=== PATIENT | female | born 1940 | race African-American/Black ===

== ENCOUNTER 2020-01-16 09:29 | Inpatient (IN) | payer MEDICARE, MEDICAID ==
[~2020-01-16] VITALS: Ht 162.6 cm; Wt 86.2 kg
[2020-01-16] VITALS (10 sets, daily range): BP systolic 108–146; BP diastolic 52–69
[~2020-01-16 09:29] MED LIST: DIPH25CA83 PO; HYDR25TA PO; LOSA100T32 PO
[2020-01-16] MEDS ORDERED: MORPHINE SULFATE 4 MG/ML CPJ (NOT FOR IM USE) IV STA (10:33)
[2020-01-16] MEDS ORDERED: SODIUM CHLORIDE 0.9% 1,000 ML IV ONE (10:33)
[2020-01-16] MEDS ORDERED: ONDANSETRON HCL 4MG/2ML INJ IV STA (10:33)
[2020-01-16 11:14] LABS: HEMATOCRIT. 41.8 % (36.0-48.0); HEMOGLOBIN. 14.1 g/dL (12.0-16.0); MEAN CORPUSCULAR VOLUME 89.2 fL (81.0-99.0); MEAN PLATELET VOLUME 8.5 fl (7.4-10.4); PLATELET 259 x1000/uL (130-400); RED BLOOD CELL COUNT 4.68 mill/uL (4.2-5.4)
[2020-01-16 11:18] LABS: CHLORIDE 103 mEq/L (98-107)
[2020-01-16] MEDS ORDERED: KCL 20MEQ/100ML PREMIX 100 ML IV ONE ×2 (11:45→21:00)
[2020-01-16 11:47] LABS: PLATELET ESTIMATE NORMAL
[2020-01-16] MEDS ORDERED: PIPERACILLIN/TAZ 3.375G PREMIX 50 ML IV ONE (12:00)
[2020-01-16] MEDS ORDERED: CLONIDINE 0.2MG TABLET PO ONE (12:00)
[2020-01-16] MEDS ORDERED: ASPIRIN 81MG TABLET PO ONE (12:00)
[2020-01-16 12:28] LABS: INR 1.2; PARTIAL THROMBOPLASTIN TIME 27.3 sec (23.4-31.0); PROTHROMBIN TIME 12.7 sec (9.6-11.0)
[2020-01-16 12:57] LABS: CLARITY URINE CLOUDY (CLEAR); COLOR URINE DARK YELLOW (YELLOW); KETONES URINE TRACE (NEGATIVE); LEUKOCYTE ESTERASE URINE TRACE (NEGATIVE); NITRITE URINE NEGATIVE (NEGATIVE); OCCULT BLOOD URINE NEGATIVE (NEGATIVE); PROTEIN URINE 1+ (NEGATIVE)
[2020-01-16] MEDS ORDERED: ONDANSETRON HCL 4MG/2ML INJ IV PRN (13:45)
[2020-01-16] MEDS ORDERED: CLOP75TA33 MT (13:59)
[2020-01-16] MEDS ORDERED: LOSA50TA41 MT ×2 (13:59→14:05)
[2020-01-16] MEDS ORDERED: FURO40TA5 MT (13:59)
[2020-01-16] MEDS ORDERED: HYDR-4009 MT (13:59)
[2020-01-16] MEDS ORDERED: HYDR12.54 MT (13:59)
[2020-01-16] MEDS ORDERED: AMIO100T4 PO (13:59)
[2020-01-16] MEDS ORDERED: CLON0.1T MT (13:59)
[2020-01-16] MEDS ORDERED: MIRT15TA6 MT (14:05)
[2020-01-16] MEDS ORDERED: CLON0.1T PO (14:05)
[2020-01-16] MEDS ORDERED: LORA2ORA5 PO (14:05)
[2020-01-16] MEDS ORDERED: SENN-170 MT (14:06)
[2020-01-16] MEDS ORDERED: ONDA4TAB50 MT (14:06)
[2020-01-16] MEDS ORDERED: SODIUM BICARBONATE 150 MEQ in SODIUM CHLORIDE 0.45% 1,000 ML IV SCH (14:30)
[2020-01-16] MEDS ORDERED: CEFTRIAXONE 1,000 MG in DEXTROSE 5% WATER 50 ML IV SCH (15:00)
[2020-01-16] MEDS: METRONIDAZOLE 500 MG PREMIX 100 ML IV SCH ×2 (15:11→23:58)
[2020-01-16] MEDS: ENOXAPARIN 30MG/0.3ML SYR SUBCUT SCH (15:12)
[2020-01-16] MEDS: FAMOTIDINE 20MG/2ML VIAL IV SCH (15:12)
[2020-01-16] MEDS: SODIUM CHLORIDE 0.9% 1,000 ML IV SCH (15:39)
[2020-01-16] MEDS ORDERED: KCL 20MEQ/100ML PREMIX 100 ML IV NR (16:00)
[2020-01-16] MEDS ORDERED: KCL 10MEQ/50ML PREMIX 50 ML IV ONE (20:00)
[2020-01-16] MEDS ORDERED: KCL 10MEQ/50ML PREMIX 50 ML IV SCH (23:45)
[2020-01-17] VITALS (32 sets, daily range): BP systolic 103–171; BP diastolic 50–146
[2020-01-17] MEDS: MORPHINE SULFATE 2 MG/ML CPJ (NOT FOR IM USE) IV PRN (01:14)
[2020-01-17] MEDS ORDERED: AMIODARONE HCL 150 MG in DEXT 5% WATER 100 ML IV SCH (02:00)
[2020-01-17] MEDS: SODIUM CHLORIDE 0.9% 1,000 ML IV SCH (02:55)
[2020-01-17] MEDS: AMIODARONE HCL 900 MG in DEXT 5% WATER 482 ML IV SCH (03:26)
[2020-01-17 04:59] LABS: HEMATOCRIT. 36.3 % (36.0-48.0); HEMOGLOBIN. 11.7 g/dL (12.0-16.0); MEAN CORPUSCULAR VOLUME 90.2 fL (81.0-99.0); MEAN PLATELET VOLUME 8.5 fl (7.4-10.4); PLATELET 206 x1000/uL (130-400); RED BLOOD CELL COUNT 4.03 mill/uL (4.2-5.4); RED CELL DISTRIBUTION WIDTH 14.2 % (11.6-14.6)
[2020-01-17 05:20] LABS: CHLORIDE 114 mEq/L (98-107)
[2020-01-17 05:30] LABS: PHOSPHORUS 2.4 mg/dL (2.5-4.9)
[2020-01-17] MEDS: METRONIDAZOLE 500 MG PREMIX 100 ML IV SCH ×3 (06:49→21:19)
[2020-01-17] MEDS ORDERED: KCL 20MEQ/100ML PREMIX 100 ML IV NR (09:30)
[2020-01-17] MEDS ORDERED: LIDOCAINE HCL 1% 20ML VIAL (Pyxis) INJ ONE (09:48)
[2020-01-17] MEDS ORDERED: POTASSIUM CHLORIDE INJ 40 MEQ in DEXT 5% WATER 250 ML IV ONE (11:00)
[2020-01-17] MEDS: ASPIRIN 81MG TABLET PO SCH (11:13)
[2020-01-17] MEDS: FAMOTIDINE 20MG/2ML VIAL IV SCH (11:13)
[2020-01-17] MEDS: SODIUM BICARBONATE 50 MEQ in SODIUM CHLORIDE 0.45% 1,000 ML IV SCH ×2 (11:13→20:15)
[2020-01-17 11:42] LABS: BG BASE EXCESS -9.3 mmol/L (-2.0-2.0); BG CARBOXYHEMOGLOBIN 0.6 % (0.5-1.5); BG DEOXYHEMOGLOBIN 3.9 % (0.0-5.0); BG FRACTION INSPIRED OXYGEN 28; BG OXYHEMOGLOBIN 93.5 % (94.0-97.0); BG PH 7.304 (7.350-7.450); BG PO2 87.7 mmHg (75.0-100.0); BG SAMPLE SITE LEFT BRACHIAL; BG TOTAL HEMOGLOBIN 12.5 g/dL (12.0-18.0); BG VENT MODE NASAL CANNULA
[2020-01-17 11:45] LABS: PLATELET ESTIMATE NORMAL
[2020-01-17] MEDS: CEFEPIME 1,000 MG in DEXTROSE 5% WATER 50 ML IV SCH (13:45)
[2020-01-17] MEDS: ENOXAPARIN 30MG/0.3ML SYR SUBCUT SCH (14:28)
[2020-01-17 20:20] LABS: CHLORIDE 115 mEq/L (98-107)
[2020-01-17 20:27] LABS: PHOSPHORUS 1.4 mg/dL (2.5-4.9)
[2020-01-18] VITALS (86 sets, daily range): BP systolic 66–184; BP diastolic 28–107
[2020-01-18] MEDS: METRONIDAZOLE 500 MG PREMIX 100 ML IV SCH ×3 (05:07→23:12)
[2020-01-18 05:47] LABS: HEMATOCRIT. 36.4 % (36.0-48.0); MEAN CORPUSCULAR HEMOGLOBIN 29.6 pg (28.0-32.0); MEAN PLATELET VOLUME 8.8 fl (7.4-10.4); PLATELET 212 x1000/uL (130-400); RED BLOOD CELL COUNT 4.04 mill/uL (4.2-5.4); RED CELL DISTRIBUTION WIDTH 14.6 % (11.6-14.6)
[2020-01-18 06:04] LABS: CHLORIDE 113 mEq/L (98-107)
[2020-01-18 06:23] LABS: PHOSPHORUS 1.2 mg/dL (2.5-4.9)
[2020-01-18 07:40] LABS: PLATELET ESTIMATE NORMAL
[2020-01-18 08:07] LABS: *CREATININE RANDOM URINE 318.9 mg/dL (Not Estab.); MICROALBUMIN RANDOM URINE 179.8 ug/mL (Not Estab.)
[2020-01-18] MEDS: ASPIRIN 81MG TABLET PO SCH (08:24)
[2020-01-18] MEDS: FAMOTIDINE 20MG/2ML VIAL IV SCH (08:24)
[2020-01-18] MEDS: AMIODARONE HCL 900 MG in DEXT 5% WATER 482 ML IV SCH (09:11)
[2020-01-18] MEDS ORDERED: POTASSIUM CHLORIDE INJ 40 MEQ in DEXT 5% WATER 250 ML IV SCH (10:00)
[2020-01-18] MEDS ORDERED: AMIODARONE HCL 50MG/ML 3ML VIAL IV ONE (13:00)
[2020-01-18] MEDS ORDERED: LIDOCAINE HCL 2% 5ML SYRINGE IV NR (13:00)
[2020-01-18] MEDS ORDERED: AMIODARONE HCL IV NR (13:00)
[2020-01-18] MEDS ORDERED: DEXT 5% IV NR (13:00)
[2020-01-18] MEDS ORDERED: WATER IV NR (13:00)
[2020-01-18] MEDS ORDERED: MAGNESIUM 2 G PREMIX 50 ML IV ONE (13:15)
[2020-01-18] MEDS: POTASSIUM CHLORIDE INJ 40 MEQ in DEXT 5% WATER 250 ML IV PRN ×2 (13:26→14:28)
[2020-01-18] MEDS: SODIUM BICARBONATE 50 MEQ in SODIUM CHLORIDE 0.45% 1,000 ML IV SCH (13:48)
[2020-01-18] MEDS: CEFEPIME 1,000 MG in DEXTROSE 5% WATER 50 ML IV SCH (14:36)
[2020-01-18] MEDS: ENOXAPARIN 30MG/0.3ML SYR SUBCUT SCH (15:10)
[2020-01-18] MEDS ORDERED: POTASSIUM PHOS,M-BASIC-D-BASIC 15 MMOL in DEXT 5% WATER 245 ML IV NR (16:00)
[2020-01-18 17:44] LABS: CHLORIDE 113 mEq/L (98-107)
[2020-01-19] VITALS (96 sets, daily range): BP systolic 63–219; BP diastolic 28–130
[2020-01-19] MEDS: SODIUM BICARBONATE 50 MEQ in SODIUM CHLORIDE 0.45% 1,000 ML IV SCH (01:04)
[2020-01-19] MEDS: MORPHINE SULFATE 2 MG/ML CPJ (NOT FOR IM USE) IV PRN (01:51)
[2020-01-19] MEDS ORDERED: POTASSIUM CHLORIDE INJ 40 MEQ in DEXT 5% WATER 250 ML IV SCH (02:00)
[2020-01-19 06:09] LABS: HEMATOCRIT. 35.8 % (36.0-48.0); HEMOGLOBIN. 12.1 g/dL (12.0-16.0); MEAN CORPUSCULAR HEMOGLOBIN 30.1 pg (28.0-32.0); MEAN CORPUSCULAR VOLUME 89.1 fL (81.0-99.0); PLATELET 200 x1000/uL (130-400); RED BLOOD CELL COUNT 4.02 mill/uL (4.2-5.4); RED CELL DISTRIBUTION WIDTH 14.7 % (11.6-14.6)
[2020-01-19] MEDS: METRONIDAZOLE 500 MG PREMIX 100 ML IV SCH ×3 (06:09→21:24)
[2020-01-19 06:56] LABS: PLATELET ESTIMATE NORMAL
[2020-01-19 08:59] LABS: PHOSPHORUS 0.8 mg/dL (2.5-4.9)
[2020-01-19] MEDS: FAMOTIDINE 20MG/2ML VIAL IV SCH (10:06)
[2020-01-19] MEDS: ASPIRIN 81MG TABLET PO SCH (10:06)
[2020-01-19] MEDS: AMIODARONE HCL 900 MG in DEXT 5% WATER 482 ML IV SCH (11:24)
[2020-01-19] MEDS: ENOXAPARIN 30MG/0.3ML SYR SUBCUT SCH (14:00)
[2020-01-19] MEDS ORDERED: POTASSIUM PHOS,M-BASIC-D-BASIC 30 MMOL in DEXT 5% WATER 500 ML IV SCH (14:00)
[2020-01-19] MEDS ORDERED: ACETAMINOPHEN 650MG SUPP PR PRN (15:00)
[2020-01-19] MEDS: CEFEPIME 1,000 MG in DEXTROSE 5% WATER 50 ML IV SCH (15:01)
[2020-01-19 15:37] LABS: BG BASE EXCESS -4.8 mmol/L (-2.0-2.0); BG CARBOXYHEMOGLOBIN 0.1 % (0.5-1.5); BG HCO3 ACT 17.8 mmol/L (22.0-26.0); BG METHEMOGLOBIN 0.2 % (0.0-1.5); BG OXYHEMOGLOBIN 92.7 % (94.0-97.0); BG PCO2 26.3 mmHg (35.0-45.0); BG PH 7.448 (7.350-7.450); BG PO2 61.6 mmHg (75.0-100.0); BG SAMPLE SITE RIGHT RADIAL; BG VENT MODE ROOM AIR
[2020-01-19] MEDS ORDERED: SODIUM BICARBONATE 50 MEQ in DEXT 5%/0.45% NACL 1000ML 1,000 ML IV SCH (18:00)
[2020-01-19] MEDS: CLONIDINE 0.1MG TABLET PO PRN (22:51)
[2020-01-19] MEDS: AMLODIPINE 10MG TABLET PO SCH (22:51)
[2020-01-20] VITALS (68 sets, daily range): BP systolic 102–176; BP diastolic 36–121
[2020-01-20] MEDS: AMLODIPINE 10MG TABLET PO SCH ×2 (01:27→09:45)
[2020-01-20] MEDS: CLONIDINE 0.1MG TABLET PO PRN (05:06)
[2020-01-20] MEDS: METRONIDAZOLE 500 MG PREMIX 100 ML IV SCH ×3 (05:06→21:05)
[2020-01-20 05:42] LABS: CHLORIDE 111 mEq/L (98-107); HEMATOCRIT. 34.5 % (36.0-48.0); HEMOGLOBIN. 11.4 g/dL (12.0-16.0); MEAN CORPUSCULAR HEMOGLOBIN 29.4 pg (28.0-32.0); MEAN CORPUSCULAR VOLUME 88.6 fL (81.0-99.0); MEAN PLATELET VOLUME 8.6 fl (7.4-10.4); PLATELET 193 x1000/uL (130-400); RED CELL DISTRIBUTION WIDTH 14.4 % (11.6-14.6)
[2020-01-20 05:49] LABS: PHOSPHORUS 1.5 mg/dL (2.5-4.9)
[2020-01-20] MEDS ORDERED: POTASSIUM PHOS,M-BASIC-D-BASIC 30 MMOL in DEXT 5% WATER 250 ML IV ONE (09:00)
[2020-01-20] MEDS: FAMOTIDINE 20MG/2ML VIAL IV SCH (09:44)
[2020-01-20] MEDS: DEXT 5%/0.45% NACL 1000ML 1,000 ML IV SCH ×2 (09:44→22:50)
[2020-01-20 10:25] LABS: NUCLEATED RED BLOOD CELLS 1 /100 WBC
[2020-01-20 10:26] LABS: PLATELET ESTIMATE NORMAL
[2020-01-20] MEDS ORDERED: POTASSIUM PHOS,M-BASIC-D-BASIC 15 MMOL in DEXT 5% WATER 245 ML IV NR (13:00)
[2020-01-20] MEDS: CEFEPIME 1,000 MG in DEXTROSE 5% WATER 50 ML IV SCH (13:58)
[2020-01-20] MEDS: ENOXAPARIN 30MG/0.3ML SYR SUBCUT SCH (13:59)
[2020-01-20 16:18] LABS: CHLORIDE 109 mEq/L (98-107)
[2020-01-20 16:23] LABS: PHOSPHORUS 2.9 mg/dL (2.5-4.9)
[2020-01-20] MEDS: METOPROLOL TARTRATE 25MG TABLET PO SCH (21:04)
[2020-01-21] VITALS (7 sets, daily range): BP systolic 121–181; BP diastolic 62–85
[2020-01-21] MEDS: CLONIDINE 0.1MG TABLET PO PRN (00:33)
[2020-01-21] MEDS: METRONIDAZOLE 500 MG PREMIX 100 ML IV SCH ×3 (06:01→21:21)
[2020-01-21 07:27] LABS: CHLORIDE 110 mEq/L (98-107)
[2020-01-21 07:32] LABS: PHOSPHORUS 1.4 mg/dL (2.5-4.9)
[2020-01-21] MEDS: AMLODIPINE 10MG TABLET PO SCH (08:11)
[2020-01-21] MEDS: AMIODARONE HCL 200 MG TABLET PO SCH (08:11)
[2020-01-21] MEDS: METOPROLOL TARTRATE 25MG TABLET PO SCH ×2 (08:12→21:20)
[2020-01-21] MEDS: FAMOTIDINE 20MG/2ML VIAL IV SCH (08:12)
[2020-01-21 09:07] LABS: BG BASE EXCESS -0.5 mmol/L (-2.0-2.0); BG CARBOXYHEMOGLOBIN 0.9 % (0.5-1.5); BG DEOXYHEMOGLOBIN 5.1 % (0.0-5.0); BG FRACTION INSPIRED OXYGEN 21; BG OXYGEN SATURATION 94.9 % (92.0-98.5); BG PCO2 29.2 mmHg (35.0-45.0); BG PH 7.495 (7.350-7.450); BG PO2 70.6 mmHg (75.0-100.0); BG SAMPLE SITE LEFT RADIAL; BG TOTAL HEMOGLOBIN 11.2 g/dL (12.0-18.0); BG VENT MODE ROOM AIR
[2020-01-21] MEDS ORDERED: SODIUM PHOS,M-BASIC-D-BASIC 15 MM in DEXT 5% WATER 250 ML IV SCH (12:00)
[2020-01-21] MEDS: CEFEPIME 1,000 MG in DEXTROSE 5% WATER 50 ML IV SCH (12:41)
[2020-01-21] MEDS: DEXT 5%/0.45% NACL 1000ML 1,000 ML IV SCH (12:43)
[2020-01-21] MEDS ORDERED: POTASSIUM PHOS,M-BASIC-D-BASIC 30 MMOL in DEXT 5% WATER 500 ML IV NR (13:00)
[2020-01-21] MEDS ORDERED: METOCLOPRAMIDE HCL 10MG/2ML VIAL IV PRN (13:30)
[2020-01-21] MEDS: ENOXAPARIN 40MG/0.4ML SYR SUBCUT SCH (15:04)
[2020-01-22] VITALS: BP 139/64
[2020-01-22] MEDS: DEXT 5%/0.45% NACL 1000ML 1,000 ML IV SCH ×2 (01:54→16:42)
[2020-01-22 04:00] VITALS: BP 136/64
[2020-01-22 06:38] LABS: BASOPHILS % 0.2 % (0.0-2.0); EOSINOPHILS % 0.9 % (0.0-5.0); HEMATOCRIT. 33.2 % (36.0-48.0); HEMOGLOBIN. 10.9 g/dL (12.0-16.0); LYMPHOCYTES % 14.6 % (20.0-50.0); MEAN CORPUSCULAR HEMOGLOBIN 29.4 pg (28.0-32.0); MEAN CORPUSCULAR VOLUME 89.4 fL (81.0-99.0); MEAN PLATELET VOLUME 8.9 fl (7.4-10.4); MONOCYTES % 11.5 % (2.0-8.0); NEUTROPHILS % 72.8 % (40.0-76.0); PLATELET 190 x1000/uL (130-400); RED BLOOD CELL COUNT 3.72 mill/uL (4.2-5.4); RED CELL DISTRIBUTION WIDTH 14.6 % (11.6-14.6)
[2020-01-22 06:45] LABS: PHOSPHORUS 1.8 mg/dL (2.5-4.9)
[2020-01-22 08:00] VITALS: BP 142/66
[2020-01-22] MEDS: AMIODARONE HCL 200 MG TABLET PO SCH ×2 (10:34→11:15)
[2020-01-22] MEDS: FAMOTIDINE 20MG/2ML VIAL IV SCH (10:35)
[2020-01-22] MEDS: METOPROLOL TARTRATE 25MG TABLET PO SCH ×2 (10:35→20:54)
[2020-01-22] MEDS: AMLODIPINE 10MG TABLET PO SCH (10:35)
[2020-01-22] MEDS ORDERED: POTASSIUM PHOS,M-BASIC-D-BASIC 30 MMOL in SODIUM CHLORIDE 0.9% 500 ML IV NR (11:00)
[2020-01-22 12:00] VITALS: BP 160/67
[2020-01-22] MEDS: CEFEPIME 1,000 MG in DEXTROSE 5% WATER 50 ML IV SCH (12:55)
[2020-01-22] MEDS: ACETAMINOPHEN 325MG TABLET PO PRN ×2 (14:07→20:27)
[2020-01-22 16:00] VITALS: BP 153/73
[2020-01-22] MEDS: ENOXAPARIN 40MG/0.4ML SYR SUBCUT SCH (16:42)
[2020-01-22 20:00] VITALS: BP 154/66
[2020-01-23] VITALS: BP 137/63
[2020-01-23 04:00] VITALS: BP 143/54
[2020-01-23] MEDS: DEXT 5%/0.45% NACL 1000ML 1,000 ML IV SCH ×2 (06:17→16:52)
[2020-01-23 07:12] LABS: HEMATOCRIT. 30.2 % (36.0-48.0); HEMOGLOBIN. 10.2 g/dL (12.0-16.0); MEAN CORPUSCULAR HEMOGLOBIN 30.2 pg (28.0-32.0); MEAN CORPUSCULAR VOLUME 89.9 fL (81.0-99.0); PLATELET 152 x1000/uL (130-400); RED BLOOD CELL COUNT 3.36 mill/uL (4.2-5.4); RED CELL DISTRIBUTION WIDTH 14.6 % (11.6-14.6)
[2020-01-23 07:50] LABS: CHLORIDE 111 mEq/L (98-107)
[2020-01-23 07:57] LABS: PHOSPHORUS 2.7 mg/dL (2.5-4.9)
[2020-01-23 08:00] VITALS: BP 147/75
[2020-01-23] MEDS: FAMOTIDINE 20MG/2ML VIAL IV SCH (09:00)
[2020-01-23] MEDS: AMLODIPINE 10MG TABLET PO SCH (09:54)
[2020-01-23] MEDS: METOPROLOL TARTRATE 25MG TABLET PO SCH ×2 (09:54→23:58)
[2020-01-23] MEDS: AMIODARONE HCL 200 MG TABLET PO SCH (09:55)
[2020-01-23 12:00] VITALS: BP 153/75
[2020-01-23] MEDS ORDERED: MAGNESIUM 2 G PREMIX 50 ML IV SCH (12:00)
[2020-01-23 13:39] LABS: PLATELET ESTIMATE NORMAL
[2020-01-23 16:00] VITALS: BP 157/76
[2020-01-23] MEDS: ENOXAPARIN 40MG/0.4ML SYR SUBCUT SCH (16:00)
[2020-01-23 20:00] VITALS: BP 157/72
[2020-01-24] VITALS: BP 156/63
[2020-01-24 04:00] VITALS: BP 166/67
[2020-01-24 08:00] VITALS: BP 116/79
[2020-01-24 08:36] LABS: BASOPHILS % 0.2 % (0.0-2.0); EOSINOPHILS % 1.1 % (0.0-5.0); HEMATOCRIT. 32.1 % (36.0-48.0); HEMOGLOBIN. 10.7 g/dL (12.0-16.0); LYMPHOCYTES % 14.7 % (20.0-50.0); MEAN CORPUSCULAR HEMOGLOBIN 30.1 pg (28.0-32.0); MEAN CORPUSCULAR VOLUME 90.5 fL (81.0-99.0); MEAN PLATELET VOLUME 8.7 fl (7.4-10.4); MONOCYTES % 13.5 % (2.0-8.0); NEUTROPHILS % 70.5 % (40.0-76.0); PLATELET 171 x1000/uL (130-400); RED BLOOD CELL COUNT 3.55 mill/uL (4.2-5.4); RED CELL DISTRIBUTION WIDTH 14.4 % (11.6-14.6)
[2020-01-24 08:42] LABS: CHLORIDE 110 mEq/L (98-107)
[2020-01-24] MEDS: METOPROLOL TARTRATE 25MG TABLET PO SCH ×2 (09:00→21:20)
[2020-01-24] MEDS: FAMOTIDINE 20MG/2ML VIAL IV SCH (09:20)
[2020-01-24] MEDS: AMLODIPINE 10MG TABLET PO SCH (09:20)
[2020-01-24] MEDS: AMIODARONE HCL 200 MG TABLET PO SCH (09:20)
[2020-01-24 12:00] VITALS: BP 125/68
[2020-01-24] MEDS ORDERED: POTASSIUM-SODIUM PHOSPHATE POWDER PACKET PO NR (13:45)
[2020-01-24 16:00] VITALS: BP 157/50
[2020-01-24] MEDS ORDERED: POTASSIUM PHOS,M-BASIC-D-BASIC 20 MMOL in DEXT 5% WATER 243.3333 ML IV NR (16:30)
[2020-01-24] MEDS: ENOXAPARIN 40MG/0.4ML SYR SUBCUT SCH (16:47)
[2020-01-24 20:00] VITALS: BP 179/66
[2020-01-25] VITALS: BP 162/72
[2020-01-25 04:00] VITALS: BP 151/81
[2020-01-25] MEDS: DEXT 5%/0.45% NACL 1000ML 1,000 ML IV SCH (06:46)
[2020-01-25 08:00] VITALS: BP 147/69
[2020-01-25] MEDS: FAMOTIDINE 20MG/2ML VIAL IV SCH (08:28)
[2020-01-25] MEDS: AMIODARONE HCL 200 MG TABLET PO SCH (08:28)
[2020-01-25] MEDS: AMLODIPINE 10MG TABLET PO SCH (08:28)
[2020-01-25] MEDS: METOPROLOL TARTRATE 25MG TABLET PO SCH (08:28)
[2020-01-25 10:46] VITALS: BP 151/83
[2020-01-25 12:00] VITALS: BP 154/71
[2020-01-25 16:00] VITALS: BP 151/82
[2020-01-25] MEDS ORDERED: APIXABAN 2.5 MG TABLET PO SCH (17:00)
== END 2020-01-25 20:00 | disposition hospice, inpatient (51) | DRG 871 ==
LOC: ER 09:29 → CVICU 11:59 → EDBEDREQ 12:09 → EDBEDREQTM 12:09 → ENRESERV 12:15 → 6WST 01-20 23:05 → 7WST 01-23 17:00
PROVIDERS: ADMIT Internal Medicine; ATTEND Internal Medicine
PROC: 02HV33Z Insertion of Infusion Device into Superior Vena Cava, Percutaneous Approach (ICD-10-PCS; 2020-01-17)
PROC: B548ZZA Ultrasonography of Superior Vena Cava, Guidance (ICD-10-PCS; 2020-01-17)
PROC: 5A2204Z Restoration of Cardiac Rhythm, Single (ICD-10-PCS; principal; 2020-01-18)
PROC: 02HV33Z Insertion of Infusion Device into Superior Vena Cava, Percutaneous Approach (ICD-10-PCS; 2020-01-20)
PROC: B548ZZA Ultrasonography of Superior Vena Cava, Guidance (ICD-10-PCS; 2020-01-20)
DX: A41.9 Sepsis, unspecified organism (principal); U07.1 COVID-19; E43 Unspecified severe protein-calorie malnutrition; N17.0 Acute kidney failure with tubular necrosis; J18.9 Pneumonia, unspecified organism; I21.3 ST elevation (STEMI) myocardial infarction of unspecified site; E87.2 Acidosis; E87.1 Hypo-osmolality and hyponatremia; K81.0 Acute cholecystitis; I47.2 Ventricular tachycardia; I50.42 Chronic combined systolic (congestive) and diastolic (congestive) heart failure; I42.9 Cardiomyopathy, unspecified; I13.0 Hypertensive heart and chronic kidney disease with heart failure and stage 1 through stage 4 chronic kidney disease, or unspecified chronic kidney disease; G45.9 Transient cerebral ischemic attack, unspecified; R65.20 Severe sepsis without septic shock; E87.6 Hypokalemia; N18.9 Chronic kidney disease, unspecified; E78.5 Hyperlipidemia, unspecified; E11.22 Type 2 diabetes mellitus with diabetic chronic kidney disease; E86.0 Dehydration; E78.1 Pure hyperglyceridemia; E83.39 Other disorders of phosphorus metabolism; B96.89 Other specified bacterial agents as the cause of diseases classified elsewhere; F03.90 Unspecified dementia, unspecified severity, without behavioral disturbance, psychotic disturbance, mood disturbance, and anxiety; I25.10 Atherosclerotic heart disease of native coronary artery without angina pectoris; E83.42 Hypomagnesemia; M19.90 Unspecified osteoarthritis, unspecified site; I49.3 Ventricular premature depolarization; K57.90 Diverticulosis of intestine, part unspecified, without perforation or abscess without bleeding; Z68.32 Body mass index [BMI] 32.0-32.9, adult; Z95.810 Presence of automatic (implantable) cardiac defibrillator; Z86.73 Personal history of transient ischemic attack (TIA), and cerebral infarction without residual deficits; Z79.02 Long term (current) use of antithrombotics/antiplatelets; Z79.899 Other long term (current) drug therapy
CPT/HCPCS: 36415; 36600; 71045; 73060; 74018; 74176; 76705; 76937; 78227; 80048; 80053; 80061; 81003; 82043; 82270; 82375; 82570; 82805; 82962; 83036; 83605; 83735; 83880; 83935; 84100; 84132; 84156; 84484; 85025; 87015; 87045; 87426; 87427; 87449; 87635; 89055; 93005; 93306; 93970; 93971; 97162; 97530; 99291; A9537; C1725; J0282; J0692; J0696; J1650; J2270; J2405; J2543; J3475; J3480; J3490; J7030; J7040; J7060